=== PATIENT | male | born 1975 | race Asian ===

== ENCOUNTER 2020-12-22 18:51 | Emergency (ER) | payer MEDICAID ==
[~2020-12-22] VITALS: Ht 175.3 cm; Wt 64.0 kg
[2020-12-22 20:11] LABS: BASOPHILS % 0.4 % (0.0-2.0); EOSINOPHILS % 0.6 % (0.0-5.0); HEMATOCRIT. 37.7 % (42.0-52.0); HEMOGLOBIN. 13.2 g/dL (14.0-18.0); MEAN CORPUSCULAR HEMOGLOBIN 30.1 pg (28.0-32.0); MEAN PLATELET VOLUME 7.5 fl (7.4-10.4); PLATELET 242 x1000/uL (130-400); RED BLOOD CELL COUNT 4.39 mill/uL (4.7-6.1); RED CELL DISTRIBUTION WIDTH 12.9 % (11.6-14.6)
[2020-12-22 20:14] LABS: CHLORIDE 107 mEq/L (98-107)
[2020-12-22 20:17] LABS: PROTHROMBIN TIME 10.8 sec (9.6-11.0)
[2020-12-22] MEDS ORDERED: DEXAMETHASONE 10 MG/ML VIAL IV ONE (21:15)
[2020-12-23] MEDS ORDERED: LEVETIRACETAM 500MG PREMIX 100 ML IV ONE (01:30)
[2020-12-23 06:00] VITALS: BP 121/89
== END 2020-12-23 06:29 | disposition short-term general hospital (02) ==
LOC: ER 18:51
DX: R90.0 Intracranial space-occupying lesion found on diagnostic imaging of central nervous system (principal); F32.9 Major depressive disorder, single episode, unspecified
CPT/HCPCS: 36415; 70450; 80053; 85025; 85610; 93005; 96375; 99285; J1100; J1953